=== PATIENT | female | born 1995 | race Caucasian/White ===

== ENCOUNTER 2017-02-26 17:58 | Outpatient (CLI) | payer BC ==
[2017-02-26 19:22] LABS: ADD UMIC YES; UR ASCORBIC ACID NEGATIVE (NEGATIVE); UR BACTERIA MANY /HPF (NONE SEEN); UR BILIRUBIN (Dip) NEGATIVE (NEGATIVE); UR BLOOD (Dip) NEGATIVE (NEGATIVE); UR CLARITY CLOUDY (CLEAR); UR COLOR YELLOW (YELLOW); UR GLUCOSE (Dip) NEGATIVE (NEGATIVE); UR KETONES (Dip) NEGATIVE (NEGATIVE); UR LEUKOCYTE ESTERASE (Dip) 2+ Leu/ul (NEGATIVE); UR NITRITE (Dip) NEGATIVE (NEGATIVE); UR NONSQUAMOUS EPITHELIAL CELL 2 /HPF (NONE SEEN); UR RBC 1 /HPF (0-5); UR SPECIFIC GRAVITY (Dip) 1.011 (1.003-1.030); UR SQUAMOUS EPITHELIAL CELL MANY /HPF (FEW); UR TOTAL PROTEIN (Dip) NEGATIVE (NEGATIVE); UR UROBILINOGEN (Dip) NEGATIVE (NEGATIVE); UR WBC 34 /HPF (0-5)
[2017-02-26 19:44] LABS: WHITE BLOOD COUNT 9.4 10^3/ul (4.8-10.8)
[2017-02-26 19:44] LABS: ABNORMAL IP MESSAGE 1; HEMATOCRIT 33.7 % (37.0-47.0); HEMOGLOBIN 11.6 g/dl (12.0-16.0); MEAN CORPUSCULAR HEMOGLOBIN 31.2 pg (29.0-33.0); MEAN CORPUSCULAR HGB CONC 34.4 g/dl (32.0-37.0); MEAN CORPUSCULAR VOLUME 90.6 fl (72.0-104.0); MEAN PLATELET VOLUME 13.3 fl (7.4-10.4); PLATELET COUNT 138 10^3/UL (140-415); RED BLOOD COUNT 3.72 10^6/ul (4.20-5.40); RED CELL DISTRIBUTION WIDTH 12.5 % (11.5-14.5)
[2017-02-26 19:47] LABS: ADD MAN DIFF? YES; POSITIVE DIFF @See below
[2017-02-26 19:51] LABS: ALANINE AMINOTRANSFERASE 29 IU/L (13-69); ALBUMIN 3.6 g/dl (3.3-4.9); ALKALINE PHOSPHATASE 152 IU/L (42-121); ANION GAP 14 (8-16); ASPARTATE AMINO TRANSFERASE 25 IU/L (15-46); BLOOD UREA NITROGEN 6 mg/dl (7-20); CALCIUM 9.6 mg/dl (8.4-10.2); CARBON DIOXIDE 23 mmol/L (21-31); CHLORIDE 107 mmol/L (97-110); CREATININE 0.54 mg/dl (0.44-1.00); GLUCOSE 81 mg/dl (70-220); POTASSIUM 4.1 mmol/L (3.5-5.1); SODIUM 140 mmol/L (135-144); TOTAL PROTEIN 7.2 g/dl (6.1-8.1); URIC ACID 6.5 mg/dl (3.1-7.9)
[2017-02-26 19:58] LABS: INR 0.99; PROTIME 13.2 Sec (11.9-14.9)
[2017-02-26 19:59] LABS: PARTIAL THROMBOPLASTIN TIME 32.8 Sec (25.0-35.0)
[2017-02-26 20:13] LABS: FIBRIN SPLIT PRODUCT <10 ug/ml (<10)
[2017-02-26] MEDS ORDERED: LACTATED RINGER'S 1,000 ML IV (20:30)
[2017-02-26 20:50] LABS: BAND NEUTROPHILS #M 0.6 10^3/ul (0.0-0.6); BAND NEUTROPHILS % (M) 7 % (0-10); GIANT THROMBO% (M) 5 % (0-0); LYMPHOCYTES % (M) 11 % (18-55); METAMYELOCYTES %M 1 % (0-0); MONOCYTE #M 0.4 10^3/ul (0.3-0.9); MONOCYTES % (M) 5 % (0-13); MYELOCYTES % (M) 1 % (0-0); PLATELET ESTIMATE NORMAL; SEG NEUT #M 7.1 10^3/ul (1.7-7.5); SEGMENTED NEUTROPHILS (M) % 75 % (30-74)
[2017-02-26] MEDS: SOD CHLORIDE 0.9% 1,000 ML IV (21:20)
[2017-02-26] MEDS: ACETAMINOPHEN 500 MG TAB PO (21:24)
[2017-02-26] MEDS ORDERED: ACETAMINOPHEN 1000MG/100ML IV 100 ML IVPB (21:30)
[2017-02-26] MEDS: CEFTRIAXONE 1 GM/50 ML (PMX) 50 ML IVPB (21:34)
== END 2017-02-26 23:12 | disposition home or self-care (01) ==
LOC: OBT 17:58 → L-D 17:59 → OBT 23:12
DX: O26.893 Other specified pregnancy related conditions, third trimester (principal); R10.13 Epigastric pain; R51 Headache; O99.113 Other diseases of the blood and blood-forming organs and certain disorders involving the immune mechanism complicating pregnancy, third trimester; Z3A.35 35 weeks gestation of pregnancy
CPT/HCPCS: 36415; 76818; 80053; 81001; 84560; 85025; 85362; 85384; 85610; 85730; 96360; 96375

== ENCOUNTER 2017-02-28 00:54 | Outpatient (CLI) | payer BC ==
[2017-02-28 02:59] LABS: COLLECTION PERIOD 24 hrs
[2017-02-28 03:02] LABS: ADD MAN DIFF? NO
[2017-02-28 03:06] LABS: WHITE BLOOD COUNT 6.5 10^3/ul (4.8-10.8)
[2017-02-28 03:06] LABS: ABNORMAL IP MESSAGE 1; BASOPHILS % 0.2 % (0.0-2.0); EOSINOPHILS # 0.1 10^3/ul (0.0-0.5); EOSINOPHILS % 1.8 % (0.0-7.0); HEMATOCRIT 31.1 % (37.0-47.0); HEMOGLOBIN 10.6 g/dl (12.0-16.0); LYMPHOCYTES # 1.8 10^3/ul (0.8-2.9); MEAN CORPUSCULAR HGB CONC 34.1 g/dl (32.0-37.0); MEAN CORPUSCULAR VOLUME 90.9 fl (72.0-104.0); MEAN PLATELET VOLUME 13.4 fl (7.4-10.4); MONOCYTE # 0.7 10^3/ul (0.3-0.9); NEUTROPHIL # 3.8 10^3/ul (1.6-7.5); NEUTROPHILS % 57.9 % (30.0-74.0); PLATELET COUNT 131 10^3/UL (140-415); RED BLOOD COUNT 3.42 10^6/ul (4.20-5.40); RED CELL DISTRIBUTION WIDTH 12.7 % (11.5-14.5)
[2017-02-28 03:12] LABS: POSITIVE DIFF @See below
[2017-02-28 03:27] LABS: INR 0.98; PARTIAL THROMBOPLASTIN TIME 32.7 Sec (25.0-35.0); PROTIME 13.1 Sec (11.9-14.9)
[2017-02-28 03:32] LABS: ALANINE AMINOTRANSFERASE 25 IU/L (13-69); ALBUMIN 3.2 g/dl (3.3-4.9); ALBUMIN/GLOBULIN RATIO 0.96; ALKALINE PHOSPHATASE 142 IU/L (42-121); ANION GAP 14 (8-16); ASPARTATE AMINO TRANSFERASE 19 IU/L (15-46); BLOOD UREA NITROGEN 5 mg/dl (7-20); CALCIUM 8.8 mg/dl (8.4-10.2); CARBON DIOXIDE 21 mmol/L (21-31); CHLORIDE 108 mmol/L (97-110); CREATININE 0.51 mg/dl (0.44-1.00); GLUCOSE 78 mg/dl (70-220); POTASSIUM 3.9 mmol/L (3.5-5.1); SODIUM 139 mmol/L (135-144); TOTAL PROTEIN 6.5 g/dl (6.1-8.1)
[2017-02-28 03:38] LABS: VOLUME 3600 mls
[2017-02-28 04:23] LABS: COLLECTION PERIOD 24 hrs; CREATININE CLEARANCE 135.5 mls/min (84.0-162.0); CREATININE,URINE RANDOM 27.64 mg/dl (20-320); SCRET 0.51 mg/dl (0.44-1.00); VOLUME 3600 ml/24hrs
== END 2017-02-28 06:10 | disposition home or self-care (01) ==
LOC: OBT 00:54 → L-D 00:55 → OBT 06:10
DX: O13.3 Gestational [pregnancy-induced] hypertension without significant proteinuria, third trimester (principal); Z3A.35 35 weeks gestation of pregnancy
CPT/HCPCS: 36415; 80053; 82575; 84156; 84560; 85025; 85384; 85610; 85730

== ENCOUNTER 2017-02-28 17:32 | Inpatient (IN) | payer BC ==
[2017-02-28] MEDS: ACETAMINOPHEN 325 MG TAB PO (18:36)
[2017-02-28] MEDS ORDERED: AL HYDROX/MG HYDROX/SIMETH 30 ML CUP PO (21:00)
[2017-02-28] MEDS ORDERED: LABETALOL 100 MG TAB PO (21:00)
[2017-02-28 22:39] LABS: ADD MAN DIFF? NO
[2017-02-28 22:41] LABS: ABNORMAL IP MESSAGE 1; BASOPHILS % 0.2 % (0.0-2.0); EOSINOPHILS # 0.2 10^3/ul (0.0-0.5); EOSINOPHILS % 1.8 % (0.0-7.0); HEMATOCRIT 31.5 % (37.0-47.0); HEMOGLOBIN 10.8 g/dl (12.0-16.0); LYMPHOCYTES # 1.6 10^3/ul (0.8-2.9); LYMPHOCYTES % 17.9 % (18.0-55.0); MEAN CORPUSCULAR HGB CONC 34.3 g/dl (32.0-37.0); MEAN CORPUSCULAR VOLUME 90.5 fl (72.0-104.0); MEAN PLATELET VOLUME 13.5 fl (7.4-10.4); MONOCYTE # 0.8 10^3/ul (0.3-0.9); MONOCYTES % 9.2 % (0.0-13.0); NEUTROPHIL # 6.3 10^3/ul (1.6-7.5); NEUTROPHILS % 69.8 % (30.0-74.0); PLATELET COUNT 138 10^3/UL (140-415); RED BLOOD COUNT 3.48 10^6/ul (4.20-5.40); RED CELL DISTRIBUTION WIDTH 12.7 % (11.5-14.5)
[2017-02-28 23:01] LABS: ALANINE AMINOTRANSFERASE 26 IU/L (13-69); ALBUMIN 3.3 g/dl (3.3-4.9); ALBUMIN/GLOBULIN RATIO 1.03; ALKALINE PHOSPHATASE 144 IU/L (42-121); ANION GAP 16 (8-16); ASPARTATE AMINO TRANSFERASE 20 IU/L (15-46); BLOOD UREA NITROGEN 4 mg/dl (7-20); CALCIUM 9.1 mg/dl (8.4-10.2); CARBON DIOXIDE 21 mmol/L (21-31); CHLORIDE 108 mmol/L (97-110); CREATININE 0.49 mg/dl (0.44-1.00); GLUCOSE 77 mg/dl (70-220); POTASSIUM 3.6 mmol/L (3.5-5.1); SODIUM 141 mmol/L (135-144); TOTAL PROTEIN 6.5 g/dl (6.1-8.1); URIC ACID 6.4 mg/dl (3.1-7.9)
[2017-02-28 23:20] LABS: POSITIVE DIFF @See below
[2017-02-28 23:31] LABS: INR 0.97
[2017-02-28 23:32] LABS: PARTIAL THROMBOPLASTIN TIME 33.2 Sec (25.0-35.0)
[2017-03-01] MEDS: NACL 0.9% 3 ML SYG IV (05:55)
[2017-03-01] MEDS: PRENATAL VITAMIN PO (08:39)
[2017-03-01] MEDS: DOCUSATE SODIUM 100 MG CAP PO (08:39)
[2017-03-01] MEDS: FERROUS SULFATE (EC) 325 MG TAB PO (08:39)
[2017-03-01] MEDS: LABETALOL 100 MG TAB PO (08:40)
[2017-03-01 18:34] LABS: RAPID PLASMA REAGIN NONREACTIVE (NR)
[2017-03-02] MEDS: DOCUSATE SODIUM 100 MG CAP PO (09:18)
[2017-03-02] MEDS: FERROUS SULFATE (EC) 325 MG TAB PO (09:18)
[2017-03-02] MEDS: PRENATAL VITAMIN PO (09:18)
[2017-03-02 11:03] LABS: ADD MAN DIFF? NO
[2017-03-02 11:08] LABS: BASOPHILS % 0.1 % (0.0-2.0); EOSINOPHILS # 0.1 10^3/ul (0.0-0.5); EOSINOPHILS % 1.6 % (0.0-7.0); HEMATOCRIT 32.3 % (37.0-47.0); HEMOGLOBIN 10.9 g/dl (12.0-16.0); LYMPHOCYTES # 1.8 10^3/ul (0.8-2.9); LYMPHOCYTES % 22.1 % (18.0-55.0); MEAN CORPUSCULAR HEMOGLOBIN 30.8 pg (29.0-33.0); MEAN CORPUSCULAR HGB CONC 33.7 g/dl (32.0-37.0); MEAN CORPUSCULAR VOLUME 91.2 fl (72.0-104.0); MONOCYTE # 0.6 10^3/ul (0.3-0.9); MONOCYTES % 6.9 % (0.0-13.0); NEUTROPHIL # 5.5 10^3/ul (1.6-7.5); NEUTROPHILS % 68.2 % (30.0-74.0); PLATELET COUNT 132 10^3/UL (140-415); RED BLOOD COUNT 3.54 10^6/ul (4.20-5.40); RED CELL DISTRIBUTION WIDTH 12.9 % (11.5-14.5)
[2017-03-02 11:28] LABS: ALANINE AMINOTRANSFERASE 23 IU/L (13-69); ALBUMIN 3.2 g/dl (3.3-4.9); ALBUMIN/GLOBULIN RATIO 1.03; ALKALINE PHOSPHATASE 133 IU/L (42-121); ANION GAP 13 (8-16); ASPARTATE AMINO TRANSFERASE 20 IU/L (15-46); BILIRUBIN,INDIRECT 0.1 mg/dl (0-1.1); BILIRUBIN,TOTAL 0.1 mg/dl (0.2-1.3); BLOOD UREA NITROGEN 4 mg/dl (7-20); CALCIUM 8.8 mg/dl (8.4-10.2); CARBON DIOXIDE 22 mmol/L (21-31); CHLORIDE 106 mmol/L (97-110); CREATININE 0.53 mg/dl (0.44-1.00); GLUCOSE 95 mg/dl (70-220); POTASSIUM 3.8 mmol/L (3.5-5.1); SODIUM 137 mmol/L (135-144); TOTAL PROTEIN 6.3 g/dl (6.1-8.1)
[2017-03-02] MEDS: ACETAMINOPHEN 325 MG TAB PO (14:36)
[2017-03-02] MEDS ORDERED: INFLUENZA VIRUS VACCINE 0.5 ML (DISPENSING) IM* (23:00)
[2017-03-03] MEDS: INFLUENZA VIRUS VACCINE 0.5 ML (DISPENSING) IM* (08:13)
[2017-03-03] MEDS: FERROUS SULFATE (EC) 325 MG TAB PO (09:16)
[2017-03-03] MEDS: DOCUSATE SODIUM 100 MG CAP PO (09:16)
[2017-03-03] MEDS: PRENATAL VITAMIN PO (09:16)
== END 2017-03-03 16:42 | disposition home or self-care (01) | DRG 782 ==
LOC: OBT 17:32 → L-D 17:33 → OBT 18:45 → PP1 18:45
DX: O13.3 Gestational [pregnancy-induced] hypertension without significant proteinuria, third trimester (principal); Z3A.36 36 weeks gestation of pregnancy
CPT/HCPCS: 76815; 76818; 80053; 84560; 85025; 85610; 85730; 86592; 86850; 86900; 86901; 90686

== ENCOUNTER 2017-03-06 17:18 | Outpatient (CLI) | payer OTHER, BC | END 2017-03-06 20:20 | disposition home or self-care (01) | LOC: OBT 17:18 → L-D 17:20 → OBT 20:20 | DX: O13.3 Gestational [pregnancy-induced] hypertension without significant proteinuria, third trimester (principal); Z3A.36 36 weeks gestation of pregnancy | CPT/HCPCS: 76818 ==

== ENCOUNTER 2017-03-07 16:55 | Inpatient (IN) | payer OTHER ==
[2017-03-07 17:39] LABS: ADD MAN DIFF? NO
[2017-03-07 17:41] LABS: WHITE BLOOD COUNT 6.9 10^3/ul (4.8-10.8)
[2017-03-07 17:41] LABS: BASOPHILS % 0.1 % (0.0-2.0); EOSINOPHILS % 0.4 % (0.0-7.0); HEMATOCRIT 31.5 % (37.0-47.0); HEMOGLOBIN 10.7 g/dl (12.0-16.0); LYMPHOCYTES # 1.5 10^3/ul (0.8-2.9); LYMPHOCYTES % 21.8 % (18.0-55.0); MEAN CORPUSCULAR VOLUME 91.3 fl (72.0-104.0); MEAN PLATELET VOLUME 12.6 fl (7.4-10.4); MONOCYTE # 0.5 10^3/ul (0.3-0.9); MONOCYTES % 7.1 % (0.0-13.0); NEUTROPHIL # 4.8 10^3/ul (1.6-7.5); NEUTROPHILS % 69.3 % (30.0-74.0); PLATELET COUNT 151 10^3/UL (140-415); RED BLOOD COUNT 3.45 10^6/ul (4.20-5.40); RED CELL DISTRIBUTION WIDTH 12.3 % (11.5-14.5)
[2017-03-07 17:56] LABS: INR 0.94; PROTIME 12.7 Sec (11.9-14.9)
[2017-03-07 17:57] LABS: PARTIAL THROMBOPLASTIN TIME 33.7 Sec (25.0-35.0)
[2017-03-07 18:01] LABS: ALANINE AMINOTRANSFERASE 25 IU/L (13-69); ALBUMIN 3.5 g/dl (3.3-4.9); ALBUMIN/GLOBULIN RATIO 1.12; ALKALINE PHOSPHATASE 156 IU/L (42-121); ANION GAP 15 (8-16); ASPARTATE AMINO TRANSFERASE 19 IU/L (15-46); BILIRUBIN,INDIRECT 0.1 mg/dl (0-1.1); BILIRUBIN,TOTAL 0.1 mg/dl (0.2-1.3); BLOOD UREA NITROGEN 6 mg/dl (7-20); CALCIUM 8.9 mg/dl (8.4-10.2); CARBON DIOXIDE 19 mmol/L (21-31); CHLORIDE 107 mmol/L (97-110); CREATININE 0.53 mg/dl (0.44-1.00); GLUCOSE 110 mg/dl (70-220); POTASSIUM 3.9 mmol/L (3.5-5.1); SODIUM 137 mmol/L (135-144); TOTAL PROTEIN 6.6 g/dl (6.1-8.1); URIC ACID 6.2 mg/dl (3.1-7.9)
[2017-03-07 18:04] LABS: ADD UMIC NO; UR ASCORBIC ACID NEGATIVE (NEGATIVE); UR BACTERIA MODERATE /HPF (NONE SEEN); UR BILIRUBIN (Dip) NEGATIVE (NEGATIVE); UR BLOOD (Dip) NEGATIVE (NEGATIVE); UR CLARITY SLIGHTLY CLOUDY (CLEAR); UR COLOR STRAW (YELLOW); UR GLUCOSE (Dip) NEGATIVE (NEGATIVE); UR KETONES (Dip) NEGATIVE (NEGATIVE); UR LEUKOCYTE ESTERASE (Dip) NEGATIVE Leu/ul (NEGATIVE); UR NITRITE (Dip) NEGATIVE (NEGATIVE); UR RBC 0 /HPF (0-5); UR SPECIFIC GRAVITY (Dip) 1.002 (1.003-1.030); UR SQUAMOUS EPITHELIAL CELL FEW /HPF (FEW); UR TOTAL PROTEIN (Dip) NEGATIVE (NEGATIVE); UR UROBILINOGEN (Dip) NEGATIVE (NEGATIVE); UR WBC 1 /HPF (0-5)
[2017-03-07] MEDS ORDERED: LACTATED RINGER'S 500 ML IV (18:12)
[2017-03-07] MEDS ORDERED: OXYTOCIN 30 UNITS/LR 500 ML IV ×3 (18:30)
[2017-03-07] MEDS ORDERED: CARBOPROST 250 MCG INJ IM (18:30)
[2017-03-07] MEDS ORDERED: HYDROCODONE/APAP (5/325) TAB PO (18:30)
[2017-03-07] MEDS ORDERED: MISOPROSTOL 200 MCG TAB PR (18:30)
[2017-03-07] MEDS ORDERED: LIDOCAINE 1% (MPF) 30 ML INJ INJ (18:30)
[2017-03-07] MEDS ORDERED: BUTORPHANOL 2 MG INJ IV (18:30)
[2017-03-07] MEDS ORDERED: IBUPROFEN 600 MG TAB PO (18:30)
[2017-03-07] MEDS ORDERED: METHYLERGONOVINE 0.2 MG INJ IM (18:30)
[2017-03-08 21:32] LABS: RAPID PLASMA REAGIN NONREACTIVE (NR)
== END 2017-03-08 12:30 | disposition home or self-care (01) | DRG 781 ==
LOC: L-D 03-08 03:41 → OBT 16:55 → L-D 16:57 → OBT 17:30 → L-D 17:30
DX: O26.893 Other specified pregnancy related conditions, third trimester (principal); R03.0 Elevated blood-pressure reading, without diagnosis of hypertension; Z3A.37 37 weeks gestation of pregnancy
CPT/HCPCS: 76815; 76818; 80053; 81001; 81003; 84560; 85025; 85610; 85730; 86592; 86900; 86901

== ENCOUNTER 2017-03-10 09:24 | Outpatient (CLI) | payer OTHER ==
[2017-03-10 12:12] LABS: ADD MAN DIFF? NO
[2017-03-10 12:22] LABS: WHITE BLOOD COUNT 7.9 10^3/ul (4.8-10.8)
[2017-03-10 12:22] LABS: BASOPHILS % 0.1 % (0.0-2.0); EOSINOPHILS # 0.1 10^3/ul (0.0-0.5); EOSINOPHILS % 0.8 % (0.0-7.0); HEMATOCRIT 32.4 % (37.0-47.0); HEMOGLOBIN 11.2 g/dl (12.0-16.0); LYMPHOCYTES # 1.9 10^3/ul (0.8-2.9); LYMPHOCYTES % 24.6 % (18.0-55.0); MEAN CORPUSCULAR HEMOGLOBIN 30.9 pg (29.0-33.0); MEAN CORPUSCULAR HGB CONC 34.6 g/dl (32.0-37.0); MEAN CORPUSCULAR VOLUME 89.5 fl (72.0-104.0); MEAN PLATELET VOLUME 12.8 fl (7.4-10.4); MONOCYTE # 0.5 10^3/ul (0.3-0.9); MONOCYTES % 6.6 % (0.0-13.0); NEUTROPHIL # 5.3 10^3/ul (1.6-7.5); NEUTROPHILS % 66.9 % (30.0-74.0); PLATELET COUNT 141 10^3/UL (140-415); RED BLOOD COUNT 3.62 10^6/ul (4.20-5.40); RED CELL DISTRIBUTION WIDTH 12.6 % (11.5-14.5)
[2017-03-10 12:29] LABS: ADD UMIC YES; UR ASCORBIC ACID NEGATIVE (NEGATIVE); UR BACTERIA MODERATE /HPF (NONE SEEN); UR BILIRUBIN (Dip) NEGATIVE (NEGATIVE); UR BLOOD (Dip) NEGATIVE (NEGATIVE); UR CLARITY SLIGHTLY CLOUDY (CLEAR); UR COLOR YELLOW (YELLOW); UR GLUCOSE (Dip) NEGATIVE (NEGATIVE); UR KETONES (Dip) NEGATIVE (NEGATIVE); UR LEUKOCYTE ESTERASE (Dip) TRACE Leu/ul (NEGATIVE); UR NITRITE (Dip) NEGATIVE (NEGATIVE); UR RBC 2 /HPF (0-5); UR SQUAMOUS EPITHELIAL CELL FEW /HPF (FEW); UR TOTAL PROTEIN (Dip) NEGATIVE (NEGATIVE); UR UROBILINOGEN (Dip) NEGATIVE (NEGATIVE); UR WBC 7 /HPF (0-5)
[2017-03-10 12:41] LABS: INR 0.98; PROTIME 13.1 Sec (11.9-14.9)
[2017-03-10 12:42] LABS: PARTIAL THROMBOPLASTIN TIME 33.2 Sec (25.0-35.0)
[2017-03-10 12:53] LABS: ALANINE AMINOTRANSFERASE 20 IU/L (13-69); ALBUMIN 3.4 g/dl (3.3-4.9); ALBUMIN/GLOBULIN RATIO 1.09; ALKALINE PHOSPHATASE 154 IU/L (42-121); ANION GAP 16 (8-16); ASPARTATE AMINO TRANSFERASE 19 IU/L (15-46); BILIRUBIN,INDIRECT 0.1 mg/dl (0-1.1); BILIRUBIN,TOTAL 0.1 mg/dl (0.2-1.3); BLOOD UREA NITROGEN 6 mg/dl (7-20); CALCIUM 8.8 mg/dl (8.4-10.2); CARBON DIOXIDE 20 mmol/L (21-31); CHLORIDE 108 mmol/L (97-110); CREATININE 0.52 mg/dl (0.44-1.00); GLUCOSE 103 mg/dl (70-220); POTASSIUM 3.8 mmol/L (3.5-5.1); SODIUM 140 mmol/L (135-144); TOTAL PROTEIN 6.5 g/dl (6.1-8.1); URIC ACID 6.6 mg/dl (3.1-7.9)
== END 2017-03-10 13:45 | disposition home or self-care (01) ==
LOC: OBT 09:24 → L-D 09:24 → OBT 13:45
DX: O13.3 Gestational [pregnancy-induced] hypertension without significant proteinuria, third trimester (principal); Z3A.37 37 weeks gestation of pregnancy
CPT/HCPCS: 76818; 80053; 81001; 84560; 85025; 85384; 85610; 85730

== ENCOUNTER 2017-03-12 16:13 | Inpatient (IN) | payer OTHER ==
[2017-03-12 18:54] LABS: ADD MAN DIFF? NO
[2017-03-12 18:55] LABS: WHITE BLOOD COUNT 7.4 10^3/ul (4.8-10.8)
[2017-03-12 18:55] LABS: BASOPHILS % 0.4 % (0.0-2.0); EOSINOPHILS # 0.1 10^3/ul (0.0-0.5); EOSINOPHILS % 0.9 % (0.0-7.0); HEMATOCRIT 32.3 % (37.0-47.0); HEMOGLOBIN 11.1 g/dl (12.0-16.0); LYMPHOCYTES # 1.8 10^3/ul (0.8-2.9); MEAN CORPUSCULAR HGB CONC 34.4 g/dl (32.0-37.0); MEAN CORPUSCULAR VOLUME 90.2 fl (72.0-104.0); MONOCYTE # 0.6 10^3/ul (0.3-0.9); MONOCYTES % 8.7 % (0.0-13.0); NEUTROPHIL # 4.7 10^3/ul (1.6-7.5); NEUTROPHILS % 63.6 % (30.0-74.0); PLATELET COUNT 141 10^3/UL (140-415); RED BLOOD COUNT 3.58 10^6/ul (4.20-5.40); RED CELL DISTRIBUTION WIDTH 12.4 % (11.5-14.5)
[2017-03-12 18:58] LABS: ADD UMIC NO; UR ASCORBIC ACID 20 mg/dL (NEGATIVE); UR BACTERIA FEW /HPF (NONE SEEN); UR BILIRUBIN (Dip) NEGATIVE (NEGATIVE); UR BLOOD (Dip) NEGATIVE (NEGATIVE); UR CLARITY SLIGHTLY CLOUDY (CLEAR); UR COLOR YELLOW (YELLOW); UR GLUCOSE (Dip) NEGATIVE (NEGATIVE); UR KETONES (Dip) NEGATIVE (NEGATIVE); UR LEUKOCYTE ESTERASE (Dip) NEGATIVE Leu/ul (NEGATIVE); UR NITRITE (Dip) NEGATIVE (NEGATIVE); UR RBC 0 /HPF (0-5); UR SPECIFIC GRAVITY (Dip) 1.009 (1.003-1.030); UR SQUAMOUS EPITHELIAL CELL FEW /HPF (FEW); UR TOTAL PROTEIN (Dip) NEGATIVE (NEGATIVE); UR UROBILINOGEN (Dip) NEGATIVE (NEGATIVE); UR WBC 1 /HPF (0-5)
[2017-03-12 19:15] LABS: ALANINE AMINOTRANSFERASE 22 IU/L (13-69); ALBUMIN 3.5 g/dl (3.3-4.9); ALBUMIN/GLOBULIN RATIO 1.12; ALKALINE PHOSPHATASE 157 IU/L (42-121); ANION GAP 14 (8-16); ASPARTATE AMINO TRANSFERASE 18 IU/L (15-46); BILIRUBIN,INDIRECT 0.1 mg/dl (0-1.1); BILIRUBIN,TOTAL 0.1 mg/dl (0.2-1.3); BLOOD UREA NITROGEN 8 mg/dl (7-20); CALCIUM 9.4 mg/dl (8.4-10.2); CARBON DIOXIDE 20 mmol/L (21-31); CHLORIDE 107 mmol/L (97-110); CREATININE 0.52 mg/dl (0.44-1.00); GLUCOSE 91 mg/dl (70-220); POTASSIUM 4.1 mmol/L (3.5-5.1); SODIUM 137 mmol/L (135-144); TOTAL PROTEIN 6.6 g/dl (6.1-8.1); URIC ACID 5.9 mg/dl (3.1-7.9)
[2017-03-12 19:18] LABS: INR 0.96; PARTIAL THROMBOPLASTIN TIME 32.6 Sec (25.0-35.0); PROTIME 12.9 Sec (11.9-14.9)
[2017-03-12 20:51] LABS: FIBRIN SPLIT PRODUCT <10 ug/ml (<10)
[2017-03-12] MEDS ORDERED: OXYCODONE/ASPIRIN (4.88/325) TAB PO (21:00)
[2017-03-12] MEDS ORDERED: BUTORPHANOL 2 MG INJ IV (21:00)
[2017-03-12] MEDS ORDERED: CARBOPROST 250 MCG INJ IM (21:00)
[2017-03-12] MEDS ORDERED: IBUPROFEN 600 MG TAB PO (21:00)
[2017-03-12] MEDS ORDERED: MISOPROSTOL 200 MCG TAB PR (21:00)
[2017-03-12] MEDS ORDERED: METHYLERGONOVINE 0.2 MG INJ IM (21:00)
[2017-03-12] MEDS ORDERED: OXYTOCIN 30 UNITS/LR 500 ML IV ×3 (21:00)
[2017-03-12] MEDS ORDERED: LIDOCAINE 1% (MPF) 30 ML INJ INJ (21:00)
[2017-03-12] MEDS: LACTATED RINGER'S 1,000 ML IV (21:47)
[2017-03-12] MEDS: AMPICILLIN 2 GM/NS (PMX) 100 ML IVPB (23:00)
[2017-03-13] MEDS: LACTATED RINGER'S 1,000 ML IV ×3 (02:42→18:38)
[2017-03-13] MEDS ORDERED: AMPICILLIN 1 GM/NS (PMX) 50 ML IVPB (03:00)
[2017-03-13 08:53] LABS: ADD MAN DIFF? NO
[2017-03-13 09:00] LABS: WHITE BLOOD COUNT 7.4 10^3/ul (4.8-10.8)
[2017-03-13 09:00] LABS: ABNORMAL IP MESSAGE 1; BASOPHILS % 0.3 % (0.0-2.0); EOSINOPHILS # 0.1 10^3/ul (0.0-0.5); EOSINOPHILS % 0.7 % (0.0-7.0); HEMATOCRIT 29.2 % (37.0-47.0); HEMOGLOBIN 10.1 g/dl (12.0-16.0); LYMPHOCYTES # 2.1 10^3/ul (0.8-2.9); LYMPHOCYTES % 28.5 % (18.0-55.0); MEAN CORPUSCULAR HEMOGLOBIN 31.2 pg (29.0-33.0); MEAN CORPUSCULAR HGB CONC 34.6 g/dl (32.0-37.0); MEAN CORPUSCULAR VOLUME 90.1 fl (72.0-104.0); MEAN PLATELET VOLUME 13.3 fl (7.4-10.4); MONOCYTE # 0.6 10^3/ul (0.3-0.9); MONOCYTES % 7.6 % (0.0-13.0); NEUTROPHIL # 4.6 10^3/ul (1.6-7.5); PLATELET COUNT 132 10^3/UL (140-415); RED BLOOD COUNT 3.24 10^6/ul (4.20-5.40); RED CELL DISTRIBUTION WIDTH 12.4 % (11.5-14.5)
[2017-03-13 09:23] LABS: INR 0.94; PROTIME 12.7 Sec (11.9-14.9)
[2017-03-13 09:24] LABS: PARTIAL THROMBOPLASTIN TIME 32.5 Sec (25.0-35.0)
[2017-03-13 09:29] LABS: ALANINE AMINOTRANSFERASE 26 IU/L (13-69); ALBUMIN 2.9 g/dl (3.3-4.9); ALKALINE PHOSPHATASE 129 IU/L (42-121); ANION GAP 12 (8-16); ASPARTATE AMINO TRANSFERASE 18 IU/L (15-46); BILIRUBIN,INDIRECT 0.1 mg/dl (0-1.1); BILIRUBIN,TOTAL 0.1 mg/dl (0.2-1.3); BLOOD UREA NITROGEN 6 mg/dl (7-20); CALCIUM 8.6 mg/dl (8.4-10.2); CARBON DIOXIDE 23 mmol/L (21-31); CHLORIDE 107 mmol/L (97-110); CREATININE 0.53 mg/dl (0.44-1.00); GLUCOSE 71 mg/dl (70-220); SODIUM 138 mmol/L (135-144); TOTAL PROTEIN 5.8 g/dl (6.1-8.1); URIC ACID 6.3 mg/dl (3.1-7.9)
[2017-03-13 09:34] LABS: FIBRIN SPLIT PRODUCT <10 ug/ml (<10)
[2017-03-13 21:26] LABS: COLLECTION PERIOD 24 hrs
[2017-03-13 21:55] LABS: COLLECTION PERIOD 24 hrs; CREATININE CLEARANCE 129.7 mls/min (84.0-162.0); CREATININE,URINE RANDOM 38.07 mg/dl (20-320); SCRET 0.53 mg/dl (0.44-1.00); VOLUME 2600 ml/24hrs; VOLUME 2600 mls
[2017-03-14] MEDS: LACTATED RINGER'S 1,000 ML IV ×3 (02:31→22:06)
[2017-03-14] MEDS: DINOPROSTONE 10 MG VAG SUPP VAG (10:40)
[2017-03-14] MEDS: AMPICILLIN 2 GM/NS (PMX) 100 ML IV (12:12)
[2017-03-14] MEDS: AMPICILLIN 1 GM/NS (PMX) 50 ML IV ×3 (16:07→23:37)
[2017-03-15] MEDS: DINOPROSTONE 10 MG VAG SUPP VAG ×2 (00:30→09:46)
[2017-03-15] MEDS: AMPICILLIN 1 GM/NS (PMX) 50 ML IV ×6 (03:33→23:31)
[2017-03-15] MEDS: LACTATED RINGER'S 1,000 ML IV ×3 (07:29→20:59)
[2017-03-15] MEDS ORDERED: LABETALOL HCL 20MG INJ IV (17:30)
[2017-03-15] MEDS ORDERED: CA GLUCONATE (GM) 10% 10ML INJ IV (17:30)
[2017-03-15] MEDS: MAGNESIUM SULFATE 4 GM/100 ML 100 ML IV (17:40)
[2017-03-15] MEDS: MAGNESIUM SULFATE 20 GM/500 ML 500 ML IV (18:07)
[2017-03-15] MEDS: LABETALOL 100 MG TAB PO (20:26)
[2017-03-16] MEDS: DINOPROSTONE 10 MG VAG SUPP VAG (01:05)
[2017-03-16 01:06] LABS: MAGNESIUM 4.7 mg/dl (1.7-2.5)
[2017-03-16] MEDS: AMPICILLIN 1 GM/NS (PMX) 50 ML IV ×3 (03:31→11:34)
[2017-03-16] MEDS: MAGNESIUM SULFATE 20 GM/500 ML 500 ML IV ×2 (03:33→13:58)
[2017-03-16] MEDS: ACETAMINOPHEN 325 MG TAB PO ×2 (03:59→08:17)
[2017-03-16] MEDS: LACTATED RINGER'S 1,000 ML IV (07:32)
[2017-03-16 08:03] LABS: MAGNESIUM 5.4 mg/dl (1.7-2.5)
[2017-03-16] MEDS: LABETALOL 100 MG TAB PO ×2 (09:00→11:36)
[2017-03-16 13:10] LABS: MAGNESIUM 5.9 mg/dl (1.7-2.5)
[2017-03-16] MEDS: ONDANSETRON 4 MG INJ IV (13:53)
[2017-03-16] MEDS: CITRIC ACID/SODIUM CITRATE 15 ML CUP PO (13:53)
[2017-03-16] MEDS: CEFAZOLIN 2 GM/50 ML (PMX) 50 ML IVPB (14:33)
[2017-03-16] MEDS ORDERED: OXYTOCIN 10 UNIT INJ (14:37)
[2017-03-16] MEDS ORDERED: PHENYLephrine (100 MCG/ML) 5ML SYG (14:37)
[2017-03-16] MEDS ORDERED: FENTAnyl 50 MCG/ML VIAL (14:37)
[2017-03-16] MEDS ORDERED: morphine SULFATE/PF (10 MG/10 ML) INJ (14:37)
[2017-03-16] MEDS ORDERED: METOCLOPRAMIDE 10 MG INJ (14:37)
[2017-03-16] MEDS ORDERED: DEXAMETHASONE 4 MG/ML 1 ML INJ (15:14)
[2017-03-16] MEDS ORDERED: morphine 4 MG/ML VIAL IV (15:30)
[2017-03-16] MEDS ORDERED: HYDROmorphONE (0.2 MG/ML) 10ML SYG IV ×3 (15:30)
[2017-03-16] MEDS ORDERED: TRIMETHOBENZAMIDE 100 MG/ML VIAL IM ×2 (15:30)
[2017-03-16] MEDS ORDERED: EPHEDrine SULFATE 50 MG/5 ML SYG IV (15:30)
[2017-03-16] MEDS ORDERED: KETOROLAC 30 MG INJ IV (15:30)
[2017-03-16] MEDS ORDERED: hydrALAzine 20 MG INJ IV (15:30)
[2017-03-16] MEDS ORDERED: morphine 2 MG INJ IV (15:30)
[2017-03-16] MEDS ORDERED: NALOXONE (0.4 MG/ML) INJ IV (15:30)
[2017-03-16] MEDS ORDERED: MIDAZOLAM 1 MG/ML 2 ML INJ IV (15:30)
[2017-03-16] MEDS ORDERED: ALBUTEROL 0.083% (NEB) 2.5 MG/3 ML AMP HHN (15:30)
[2017-03-16] MEDS ORDERED: OXYCODONE/ACETAMINOPHEN (5/325) TAB PO ×2 (15:30)
[2017-03-16] MEDS ORDERED: IPRATROPIUM (NEB) 0.5 MG/2.5 ML AMP HHN (15:30)
[2017-03-16] MEDS ORDERED: FENTAnyl 50 MCG/ML VIAL IV ×3 (15:30)
[2017-03-16] MEDS ORDERED: ONDANSETRON 4 MG INJ IV ×2 (15:30)
[2017-03-16] MEDS ORDERED: MEPERIDINE 25 MG INJ IV (15:30)
[2017-03-16] MEDS ORDERED: NALBUPHINE HCL (10 MG/1 ML) INJ IV (15:30)
[2017-03-16] MEDS ORDERED: DIPHENHYDRAMINE 50 MG INJ IV ×2 (15:30)
[2017-03-16] MEDS ORDERED: LABETALOL HCL 20MG INJ IV (15:30)
[2017-03-16] MEDS ORDERED: LACTATED RINGER'S 1,000 ML IV (15:50)
[2017-03-16] MEDS ORDERED: OXYTOCIN 30 UNITS/LR 500 ML IV ×2 (16:00→16:02)
[2017-03-16] MEDS ORDERED: SENNA/DOCUSATE NA (8.6MG/50MG) TAB PO (16:00)
[2017-03-16] MEDS ORDERED: METHYLERGONOVINE 0.2 MG INJ IM (16:00)
[2017-03-16] MEDS ORDERED: CARBOPROST 250 MCG INJ IM (16:00)
[2017-03-16] MEDS ORDERED: CA GLUCONATE (GM) 10% 10ML INJ IV (16:00)
[2017-03-16] MEDS ORDERED: LANOLIN 7 GM TUBE TOP (16:00)
[2017-03-16] MEDS ORDERED: MISOPROSTOL 200 MCG TAB PR (16:00)
[2017-03-16] MEDS: OXYTOCIN 30 UNITS/LR 500 ML IV ×3 (16:50→22:01)
[2017-03-16 18:53] LABS: MAGNESIUM 5.4 mg/dl (1.7-2.5)
[2017-03-16] MEDS: IBUPROFEN 800 MG TAB PO (22:00)
[2017-03-17] MEDS: MAGNESIUM SULFATE 20 GM/500 ML 500 ML IV ×3 (00:53→11:50)
[2017-03-17] MEDS: IBUPROFEN 800 MG TAB PO ×3 (06:00→21:52)
[2017-03-17] MEDS: OXYTOCIN 30 UNITS/LR 500 ML IV (08:17)
[2017-03-17 08:27] LABS: ADD MAN DIFF? NO
[2017-03-17 08:39] LABS: ABNORMAL IP MESSAGE 1; BASOPHILS % 0.1 % (0.0-2.0); EOSINOPHILS % 0.1 % (0.0-7.0); HEMATOCRIT 28.2 % (37.0-47.0); HEMOGLOBIN 9.8 g/dl (12.0-16.0); LYMPHOCYTES # 1.9 10^3/ul (0.8-2.9); LYMPHOCYTES % 13.7 % (18.0-55.0); MEAN CORPUSCULAR HEMOGLOBIN 30.8 pg (29.0-33.0); MEAN CORPUSCULAR HGB CONC 34.8 g/dl (32.0-37.0); MEAN CORPUSCULAR VOLUME 88.7 fl (72.0-104.0); MEAN PLATELET VOLUME 13.4 fl (7.4-10.4); MONOCYTE # 1.1 10^3/ul (0.3-0.9); MONOCYTES % 8.2 % (0.0-13.0); NEUTROPHIL # 10.5 10^3/ul (1.6-7.5); NEUTROPHILS % 77.2 % (30.0-74.0); PLATELET COUNT 129 10^3/UL (140-415); RED BLOOD COUNT 3.18 10^6/ul (4.20-5.40); RED CELL DISTRIBUTION WIDTH 12.3 % (11.5-14.5)
[2017-03-17 08:39] LABS: WHITE BLOOD COUNT 13.7 10^3/ul (4.8-10.8)
[2017-03-17 08:44] LABS: POSITIVE DIFF @See below
[2017-03-17 09:12] LABS: MAGNESIUM 6.9 mg/dl (1.7-2.5)
[2017-03-17 14:03] LABS: MAGNESIUM 6.4 mg/dl (1.7-2.5)
[2017-03-17] MEDS: OXYCODONE/ACETAMINOPHEN (5/325) TAB PO (15:19)
[2017-03-17] MEDS: INFLUENZA VIRUS VACCINE 0.5 ML (DISPENSING) IM* (19:30)
[2017-03-18] MEDS: IBUPROFEN 800 MG TAB PO ×3 (05:17→21:48)
[2017-03-18] MEDS: OXYCODONE/ACETAMINOPHEN (5/325) TAB PO (05:18)
[2017-03-18] MEDS: NA PHOSPHATE/BIPHOS 133 ML ENEMA PR (10:30)
[2017-03-19] MEDS: IBUPROFEN 800 MG TAB PO ×2 (05:39→14:06)
[2017-03-19] MEDS: DIPHTH/TET/ACEL PERTUSS (ADULT) 0.5 ML VIAL IM* (11:37)
== END 2017-03-19 15:23 | disposition home or self-care (01) | DRG 766 ==
LOC: OBT 16:13 → L-D 03-14 21:18 → PP1 03-16 20:37 → OBT 21:30 → L-D 21:30
PROC: 10D00Z1 Extraction of Products of Conception, Low, Open Approach (ICD-10-PCS; principal; 2017-03-16)
DX: O13.4 Gestational [pregnancy-induced] hypertension without significant proteinuria, complicating childbirth (principal); O61.0 Failed medical induction of labor; O14.14 Severe pre-eclampsia complicating childbirth; Z3A.38 38 weeks gestation of pregnancy; Z37.0 Single live birth
CPT/HCPCS: 76818; 80053; 81001; 81003; 82575; 83735; 84156; 84560; 85025; 85362; 85384; 85610; 85730; 90686; 90715; 99464

== ENCOUNTER 2018-05-16 21:29 | Emergency (ER) | payer OTHER ==
[2018-05-17] MEDS: IBUPROFEN 600 MG TAB PO (01:50)
== END 2018-05-17 01:55 | disposition home or self-care (01) ==
LOC: FTE 21:29
DX: N64.52 Nipple discharge (principal)
CPT/HCPCS: 99283; Z7610